=== PATIENT | male | born 1975 | race Asian ===

== ENCOUNTER → 2018-08-26 | Outpatient (CLI) | payer OTHER ==
[~2018-08-26] MED LIST: ACET325T14 PO; IBUP-1222 PO; MULT-642 PO; OMNIPAQUE 350 MG/ML, 100ML BOTTLE ONE
== END | disposition home or self-care (01) ==
LOC: RAD 07:57
PROVIDERS: ATTEND Colon & Rectal Surgery
DX: K63.2 Fistula of intestine (principal); K57.30 Diverticulosis of large intestine without perforation or abscess without bleeding; K76.0 Fatty (change of) liver, not elsewhere classified; N32.1 Vesicointestinal fistula; M47.896 Other spondylosis, lumbar region; Z87.891 Personal history of nicotine dependence; Z72.89 Other problems related to lifestyle
CPT/HCPCS: 74177; Q9967

== ENCOUNTER 2018-09-14 05:57 | Day surgery (SDC) | payer OTHER ==
[~2018-09-14] VITALS: Ht 170.2 cm; Wt 102.6 kg
[~2018-09-14 05:57] MED LIST changes: +No meds per pt.; -OMNIPAQUE 350 MG/ML, 100ML BOTTLE ONE
[2018-09-14 06:48] VITALS: BP 135/94
[2018-09-14] MEDS ORDERED: LACTATED RINGERS 1,000 ML IV SCH (06:50)
[2018-09-14] MEDS ORDERED: PROPOFOL 10 MG/ML, 20ML ONE (08:04)
[2018-09-14] MEDS ORDERED: PROPOFOL 10 MG/ML, 50ML ONE (08:04)
== END 2018-09-14 09:30 | disposition home or self-care (01) ==
LOC: OUT 05:57
PROVIDERS: ATTEND Colon & Rectal Surgery
DX: N32.1 Vesicointestinal fistula (principal); K57.32 Diverticulitis of large intestine without perforation or abscess without bleeding; K62.4 Stenosis of anus and rectum; Z72.0 Tobacco use; Z98.890 Other specified postprocedural states; Z88.8 Allergy status to other drugs, medicaments and biological substances
CPT/HCPCS: 45330; J2704

== ENCOUNTER 2018-09-15 05:54 | Inpatient (IN) | payer OTHER ==
[2018-09-12 09:38] LABS: BASOPHILS # (AUTO) 0.03 x10^3/uL (0-0.1); BASOPHILS % (AUTO) 1 % (0-1); EOSINOPHILS # (AUTO) 0.33 x10^3/uL (0-0.4); EOSINOPHILS % (AUTO) 6 % (1-7); LYMPHOCYTES # (AUTO) 1.59 x10^3/uL (1-3.4); LYMPHOCYTES % (AUTO) 26 % (22-44); MD NO; MEAN CORPUSCULAR HEMOGLOBIN 31.6 pg (27.5-34.5); MEAN CORPUSCULAR HGB CONC 33.7 g/dL (33.2-36.2); MONOCYTES # (AUTO) 0.37 x10^3/uL (0.2-0.8); MONOCYTES % (AUTO) 6 % (2-9); NEUTROPHILS # (AUTO) 3.71 x10^3/uL (1.8-6.8); NEUTROPHILS % (AUTO) 62 % (42-75); PLATELET COUNT 314 x10^3/uL (130-400); RED BLOOD COUNT 5.38 x10^6/uL (4.38-5.82); RED CELL DISTRIBUTION WIDTH 13.4 % (9.4-14.8)
[2018-09-12 09:46] LABS: ALANINE AMINOTRANSFERASE 26 U/L (12-78); ANION GAP 5 mmol/L (5-15); CALCIUM 8.7 mg/dL (8.5-10.1); CHLORIDE 108 mmol/L (98-107)
[2018-09-12 09:48] LABS: ALKALINE PHOSPHATASE 72 U/L (45-117); BILIRUBIN,TOTAL 0.7 mg/dL (0.2-1.0); CREATININE 1.14 mg/dL (0.7-1.3)
[~2018-09-15] VITALS: Ht 170.2 cm; Wt 102.5 kg
[2018-09-15 06:13] VITALS: BP 143/98
[2018-09-15] MEDS ORDERED: LACTATED RINGERS 1,000 ML IV SCH (06:35)
[2018-09-15] MEDS ORDERED: BUPIVACAINE/PF-EPI 0.5% 1:200K ONE ×2 (06:42→06:43)
[2018-09-15] MEDS ORDERED: FLUORESCEIN SODIUM 500 MG/5 ML ONE (06:42)
[2018-09-15] MEDS ORDERED: INDIGO CARMINE 0.8%, 5ML ONE (06:42)
[2018-09-15] MEDS ORDERED: ONDANSETRON 2MG/ML, 2ML ONE ×2 (07:34→11:05)
[2018-09-15] MEDS ORDERED: CEFOTETAN PMX 2GM/50ML 50 ML IVPB ONE (07:34)
[2018-09-15] MEDS ORDERED: ROCURONIUM 10MG/ML,5ML ONE (07:34)
[2018-09-15] MEDS ORDERED: NEOSTIGMINE 1 MG/ML, 10ML ONE (07:34)
[2018-09-15] MEDS ORDERED: METOCLOPRAMIDE 5 MG/ML, 2ML ONE (07:34)
[2018-09-15] MEDS ORDERED: ACETAMINOPHEN 1,000 MG/100 ML IV ONE (07:34)
[2018-09-15] MEDS ORDERED: hydrALAzine 20 MG/ML, 1ML ONE (07:34)
[2018-09-15] MEDS ORDERED: FENTANYL PF 100 MCG/2ML ONE ×2 (07:34→08:14)
[2018-09-15] MEDS ORDERED: GLYCOPYRROLATE 0.2MG/1ML, 5ML ONE (07:34)
[2018-09-15] MEDS ORDERED: PROPOFOL 10 MG/ML, 20ML ONE (07:34)
[2018-09-15] MEDS ORDERED: DEXAMETHASONE 4 MG/ML, 1ML ONE (07:34)
[2018-09-15] MEDS ORDERED: MIDAZOLAM 1 MG/ML, 2ML ONE (07:34)
[2018-09-15] MEDS ORDERED: KETAMINE 10 MG/ML, 20ML ONE (07:42)
[2018-09-15] MEDS ORDERED: ACETAMINOPHEN 100 ML IVPB ONE (09:00)
[2018-09-15] MEDS ORDERED: INDOCYANINE GREEN 25 MG VIAL ONE (09:09)
[2018-09-15] MEDS ORDERED: LABETALOL 5MG/ML, 20ML IV PRN (10:30)
[2018-09-15] MEDS ORDERED: HYDROmorphone 1 MG/ML, 1ML INJ IV PRN (10:30)
[2018-09-15] MEDS ORDERED: FENTANYL PF 100 MCG/2ML IV PRN (10:30)
[2018-09-15] MEDS ORDERED: OXYcodone 5 MG/5 ML ORAL.SOL UDC PO PRN (10:30)
[2018-09-15] MEDS ORDERED: MIDAZOLAM 1 MG/ML, 2ML IV PRN (10:30)
[2018-09-15] MEDS ORDERED: MEPERIDINE/PF 25MG/0.5ML IVPush PRN (10:30)
[2018-09-15] MEDS ORDERED: ONDANSETRON 2MG/ML, 2ML IVPush PRN (10:30)
[2018-09-15] MEDS ORDERED: OXYcodone 5 MG/5 ML ORAL.SOL UDC ONE (10:51)
[2018-09-15] MEDS ORDERED: KETOROLAC 30 MG/1 ML ONE (10:56)
[2018-09-15] MEDS ORDERED: KETOROLAC 30 MG/1 ML IVPush ONE (11:00)
[2018-09-15] MEDS ORDERED: CALCIUM CARBONATE 500 MG TAB.CHEW PO PRN (12:30)
[2018-09-15] MEDS ORDERED: HALOPERIDOL 5 MG/ML IVPush PRN (12:30)
[2018-09-15] MEDS ORDERED: DIPHENHYDRAMINE 25 MG CAPSULE PO PRN (12:30)
[2018-09-15] MEDS ORDERED: DEXAMETHASONE 4 MG/ML, 1ML IVPush PRN (12:30)
[2018-09-15] MEDS ORDERED: DIPHENHYDRAMINE 50 MG/ML, 1ML IVPush PRN (12:30)
[2018-09-15] MEDS ORDERED: SCOPOLAMINE PATCH, 1.5MG PATCH.TD72 TD PRN (12:30)
[2018-09-15] MEDS ORDERED: MORPHINE SULFATE 4 MG/ML, 1ML IVPush PRN (12:30)
[2018-09-15] MEDS ORDERED: LORazepam 2 MG/ML, 1ML IVPush PRN (12:30)
[2018-09-15] MEDS ORDERED: TRAZODONE 50MG TABLET PO PRN (12:30)
[2018-09-15] MEDS ORDERED: LORazepam 1MG TABLET PO PRN (12:30)
[2018-09-15] MEDS ORDERED: ONDANSETRON 2MG/ML, 2ML IV PRN (12:30)
[2018-09-15] MEDS ORDERED: OXYcodone IR 5MG TABLET PO PRN (12:30)
[2018-09-15 12:55] VITALS: BP 129/79
[2018-09-15] MEDS: ACETAMINOPHEN 500 MG TABLET PO SCH ×2 (13:09→18:05)
[2018-09-15] MEDS: PIPERACILLIN/TAZO/PMX 3.375GM 50 ML IV SCH ×2 (13:09→18:04)
[2018-09-15] MEDS: LACTATED RINGERS 1,000 ML IV SCH (13:10)
[2018-09-15] MEDS: KETOROLAC 30 MG/1 ML IVPush SCH (18:05)
[2018-09-15 19:59] VITALS: BP 137/89
[2018-09-16 00:13] VITALS: BP 141/76
[2018-09-16] MEDS: PIPERACILLIN/TAZO/PMX 3.375GM 50 ML IV SCH ×4 (00:18→17:57)
[2018-09-16] MEDS: KETOROLAC 30 MG/1 ML IVPush SCH ×4 (00:18→17:57)
[2018-09-16] MEDS: ACETAMINOPHEN 500 MG TABLET PO SCH ×4 (00:18→17:57)
[2018-09-16 03:37] LABS: MEAN CORPUSCULAR HEMOGLOBIN 30.7 pg (27.5-34.5); MEAN CORPUSCULAR HGB CONC 33.1 g/dL (33.2-36.2); MEAN CORPUSCULAR VOLUME 92.7 fL (81-97); MEAN PLATELET VOLUME 7.7 fL (7.4-10.4); PLATELET COUNT 282 x10^3/uL (130-400); RED BLOOD COUNT 4.98 x10^6/uL (4.38-5.82); RED CELL DISTRIBUTION WIDTH 13.9 % (9.4-14.8)
[2018-09-16 03:46] LABS: ANION GAP 8 mmol/L (5-15); CALCIUM 8.4 mg/dL (8.5-10.1); CHLORIDE 106 mmol/L (98-107); CREATININE 1.08 mg/dL (0.7-1.3)
[2018-09-16 03:55] LABS: BASOPHILS # (AUTO) 0.02 x10^3/uL (0-0.1); BASOPHILS % (AUTO) 0 % (0-1); EOSINOPHILS # (AUTO) 0.01 x10^3/uL (0-0.4); EOSINOPHILS % (AUTO) 0 % (1-7); LYMPHOCYTES # (AUTO) 0.86 x10^3/uL (1-3.4); LYMPHOCYTES % (AUTO) 7 % (22-44); MD SCAN; MONOCYTES # (AUTO) 0.71 x10^3/uL (0.2-0.8); MONOCYTES % (AUTO) 5 % (2-9); NEUTROPHILS # (AUTO) 11.52 x10^3/uL (1.8-6.8); NEUTROPHILS % (AUTO) 88 % (42-75)
[2018-09-16 04:25] VITALS: BP 136/73
[2018-09-16 07:39] VITALS: BP 131/82
[2018-09-16] MEDS: ENOXAPARIN 40 MG/0.4 ML SQ SCH (08:56)
[2018-09-16 13:41] VITALS: BP 120/76
[2018-09-16 18:48] VITALS: BP 153/93
[2018-09-16] MEDS: LACTATED RINGERS 1,000 ML IV SCH (19:16)
[2018-09-17] MEDS: KETOROLAC 30 MG/1 ML IVPush SCH ×2 (00:10→05:52)
[2018-09-17] MEDS: ACETAMINOPHEN 500 MG TABLET PO SCH ×2 (00:10→05:52)
[2018-09-17] MEDS: PIPERACILLIN/TAZO/PMX 3.375GM 50 ML IV SCH ×2 (00:10→05:53)
[2018-09-17 01:41] VITALS: BP 156/90
[2018-09-17 05:58] LABS: ANION GAP 4 mmol/L (5-15); CALCIUM 8.5 mg/dL (8.5-10.1); CHLORIDE 108 mmol/L (98-107)
[2018-09-17 05:59] LABS: CREATININE 1.09 mg/dL (0.7-1.3)
[2018-09-17 06:04] LABS: BASOPHILS # (AUTO) 0.03 x10^3/uL (0-0.1); BASOPHILS % (AUTO) 0 % (0-1); EOSINOPHILS # (AUTO) 0.15 x10^3/uL (0-0.4); EOSINOPHILS % (AUTO) 2 % (1-7); LYMPHOCYTES # (AUTO) 1.91 x10^3/uL (1-3.4); LYMPHOCYTES % (AUTO) 19 % (22-44); MD NO; MEAN CORPUSCULAR HEMOGLOBIN 30.8 pg (27.5-34.5); MEAN CORPUSCULAR HGB CONC 32.9 g/dL (33.2-36.2); MEAN CORPUSCULAR VOLUME 93.7 fL (81-97); MEAN PLATELET VOLUME 7.7 fL (7.4-10.4); MONOCYTES # (AUTO) 0.67 x10^3/uL (0.2-0.8); MONOCYTES % (AUTO) 7 % (2-9); NEUTROPHILS # (AUTO) 7.18 x10^3/uL (1.8-6.8); NEUTROPHILS % (AUTO) 72 % (42-75); PLATELET COUNT 292 x10^3/uL (130-400); RED BLOOD COUNT 5.22 x10^6/uL (4.38-5.82); RED CELL DISTRIBUTION WIDTH 13.9 % (9.4-14.8)
[2018-09-17] MEDS: ENOXAPARIN 40 MG/0.4 ML SQ SCH (09:53)
[2018-09-17 10:23] VITALS: BP 139/88
[2018-09-17] MEDS ORDERED: AMOX1TAB64 PO (10:36)
[2018-09-17] MEDS ORDERED: OXYC-302 PO (10:37)
== END 2018-09-17 11:27 | disposition home or self-care (01) | DRG 330 ==
LOC: ORIP 05:54 → 4NOR 11:45 → DCLOUNGE 09-17 11:14
PROVIDERS: ADMIT Colon & Rectal Surgery; ATTEND Colon & Rectal Surgery
PROC: 0DBN4ZZ Excision of Sigmoid Colon, Percutaneous Endoscopic Approach (ICD-10-PCS; 2018-09-15)
PROC: 0DTP4ZZ Resection of Rectum, Percutaneous Endoscopic Approach (ICD-10-PCS; 2018-09-15)
PROC: 8E0W4CZ Robotic Assisted Procedure of Trunk Region, Percutaneous Endoscopic Approach (ICD-10-PCS; principal; 2018-09-15 07:30)
DX: K57.92 Diverticulitis of intestine, part unspecified, without perforation or abscess without bleeding (principal); N32.1 Vesicointestinal fistula; Z88.8 Allergy status to other drugs, medicaments and biological substances; E66.01 Morbid (severe) obesity due to excess calories; Z68.35 Body mass index [BMI] 35.0-35.9, adult
CPT/HCPCS: 36415; 80048; 80053; 83735; 85025; 87070; 87075; 87077; 87186; 87205; 88307; 93005; C1729; G0378; J0131; J1100; J1650; J1885; J2250; J2405; J2543; J2704; J2710; J3010; J0360; J2765; J3490; J7120